=== PATIENT | male | born 1965 | race Caucasian/White ===

== ENCOUNTER → 2021-04-23 10:46 | Outpatient (CLI) | payer OTHER, SELFPAY ==
[2021-04-23 11:42] LABS: Hematocrit 43.5 % (41-53); Mean Corpuscular HGB Conc 34.5 % (30-36); Mean Corpuscular Hemoglobin 34.2 PG (26-34); Mean Corpuscular Volume 99.1 fL (80-100); Platelet Count 158 X10^3/uL (150-400); Red Blood Cell Count 4.39 X10^6/uL (4.5-5.9); Red Cell Distribution Width 11.8 % (11.6-14.8); White Blood Cell Count 5.2 X10^3/uL (4.5-11.0)
[2021-04-23 11:48] LABS: HEMOLYSIS < 15 (0-50); Iron 164 ug/dL (49-181)
[2021-04-23 11:51] LABS: Cholesterol 218 mg/dL (140-199); HDL Cholesterol 78 mg/dL (40-60); LDL Cholesterol Calculated 121 mg/dL (<100); Triglycerides 95 mg/dL (35-150)
[2021-04-23 11:59] LABS: Total Iron Binding Capacity 208 ug/dL (261-462); Transferrin 169 mg/dL (206-381)
[2021-04-23 12:00] LABS: Percent Iron Saturation 79 % (20-50)
[2021-04-23 12:04] LABS: Vitamin D 25 Hydroxy (D3) 40.1 ng/mL (30.0-100.0)
[2021-04-23 12:23] LABS: Prostate Specific Antigen Scrn 0.931 ng/mL (0.1-4.0)
[2021-04-23 12:27] LABS: Ferritin 57 ng/mL (18-464)
== END ==
PROVIDERS: PCP Student in an Organized Health Care Education/Training Program; Referring Provider Student in an Organized Health Care Education/Training Program; Visit Provider Student in an Organized Health Care Education/Training Program
DX: Z12.5 Encounter for screening for malignant neoplasm of prostate (principal); E55.9 Vitamin D deficiency, unspecified; E83.119 Hemochromatosis, unspecified; Z13.220 Encounter for screening for lipoid disorders
CPT/HCPCS: 36415; 80061; 82306; 82728; 83540; 83550; 85027; G0103

== ENCOUNTER 2021-09-11 13:30 | Outpatient (RCR) | payer OTHER, SELFPAY ==
--- NOTE | 2021-09-01 12:34 | ST.IPIE ---
Visit Care Team Role Provider Type Roman Dawson MD Family Provider Physician Primary Care Provider Specialty: Internal Medicine Address: [address] [place] [address], [address], [place], [address] Email: [email or web address] Clara Valencia DO Attending Provider Non-Staff Referring Provider Specialty: Psychiatry Address: [address] [place] [address], [address], [place], [address] Email: Current Diagnoses Other speech disturbances (08/25/21) Past Medical History (Last Updated 04/22/21 @ 20:36 by Purnima Rowley) Atrial fibrillation (Medical ~2013) Hemochromatosis (Medical ~1993) Prostate cancer (Medical) Skin cancer (Medical) Status post ablation of atrial fibrillation (Medical ~2014) ST IP Initial Evaluation Report SCHEDULE PLANNING MANAGER Motor Speech Evaluation Start: 08/25/21 13:53 Freq: Status: Active Protocol: Document 08/25/21 13:58 LNK (Rec: 08/26/21 14:34 LNK [id number]) Motor Speech Evaluation Session Time Visit Start Time 13:30 Visit Stop Time 14:30 Total Visit Minutes 60 Visit Information Visit Number 1 Plan of Care Dates 08/25/21-11/22/21 Setting Setting Outpatient Care Next Note Type Next Note Type Treatment Note Patient History Source: [employer] [facility]). Patient History Pt is a 56 year old male here at the referral of his neurologist Clara Valencia MD. Pt has recently established care with Dr. Alarcon in [place]. Pt reported that approximately 2 months ago, he experienced some difficulty speaking with slurring, a fat tongue, stumbling over words and emotional lability. Two co -workers and pt's have noted a change, He's different. He described 2 instances where he was talking with his and said words that did not make sense at the time. Pt reported that over the last 7 months he and his have experienced a lot of stress (buying new business, moving to a new town , etc.). Pt had a MRI , which he reported was normal. He also had a MBSS which he also reported to be normal. He is scheduled for an EMG in October. He is taking escitolapram ( Lexipro) for anxiety. Referral Referring Physician Clara Valencia MD Reason for Referral speech assessment Mental Status Mental Status Alert,Responsive Oral Motor Lips Function Mild Impairment Observation at rest Slight droop on right corner of mouth. Pt reports moisture build-up/drool Pucker WNL Retraction WNL Alternating pucker/retraction WNL Involuntary Movement None Tongue Function WNL Observations at rest WNL Protrusion WNL Retraction WNL Lateralization WNL Involuntary Movement No lingual fasciculation observed Jaw Function WNL Observations at rest WNL Opening WNL Closing WNL Lateralization WNL Protrusion WNL Retraction WNL Involuntary movement None Soft Palate Function Mild Impairment Observations at rest right side faucial pillar was observed to be lower than left side. Symmetry asymmetrical Elevation asymmetrical Sustained Elevation asymmetrical Alternating elevation/relaxation asymmetrical Involuntary Movement None Respiration/Phonation Phonation Quality WNL Function WNL Loudness WNL Steadiness WNL Conversation Quality WNL Function WNL Loudness WNL Steadiness WNL Diadochokinetic Rates P^ Quality WNL T^ Quality WNL K^ Quality WNL P^T^K^ Quality WNL Speech Intelligibility Standardized Tests Assessment Name(s) Pt reports very close monitoring of speech clarity Phoneme Severity WFL Comments mild slushy /s/ Word Severity WNL Sentence Severity WNL Conversation Severity WNL Awareness/Strategy Use Description Type of awareness/use Uses consistently Findings Details Motor Speech Function Mild Impairment Assessment Details Assessment Pt presented with speech production WFL. Diadochokinesis was observed to be WNL. Oral motor examination was WNL with the exception of velar asymmetry of right faucial piller and slight facial droop on the right side. No lingual fasciculation observed. Neither velar or facial asymetric affected pt's speech intelligibility or vocal quality. Pt's described the pt's speech and as having decreased crispness of /s/. She described /s/ as being slushy. This SCHEDULE PLANNING MANAGER observed a slight /sh/ for /s/; however it did not impact intelligibility. The pt described he is carefully and continuously monitoring his speech production. He stated if he is not attending to his speech he sounds like [he' s] drunk. The observations described above and the pt's report of his symptoms at that time appear to indicate a TIA . Speech therapy is not indicated at this time. Recommendations Treatment Recommended No Referrals Suggested Neurology Patient/Family Education Education Described results of evaluation,Patient Understanding
--- NOTE | 2021-09-11 14:18 | ST.OPTN ---
Visit Care Team Role Provider Type Roman Dawson MD Family Provider Physician Primary Care Provider Address: [address] [place] [address], [address], [place], [address] Clara Valencia DO Attending Provider Non-Staff Referring Provider Address: [facility] [address] [place], [address], [place], [address] CARBURIZING FURNACE OPERATOR Treatment Note CARBURIZING FURNACE OPERATOR Treatment Note Start: 08/26/21 13:58 Freq: Status: Active Protocol: Document 09/11/21 14:02 LNK (Rec: 09/11/21 14:18 LNK [id number]) Speech Pathology Treatment Note Session Time Visit Start Time 13:30 Visit Stop Time 14:00 Total Visit Minutes 30 Visit Type Note Type Initial Evaluation Next Note Type Next Note Type Discharge Summary General Information General Information Pt is a 56 year old male here at the referral of his neurologist Clara Valencia MD. Pt has recently established care with Dr. Alarcon in [place]. Pt reported that approximately 2 months ago, he experienced some difficulty speaking with slurring, a fat tongue, stumbling over words and emotional lability. Two co -workers and pt's have noted a change, He's different. Subjective Identification Type Name,Date of Others Present Family Chief Complaint(s) Speech Patient Knowledge/Awareness of CARBURIZING FURNACE OPERATOR Role Excellent in Treatment Objective Treatment Activities Pt requested follow up appointment to review and discuss the initial evaluation results. reviewed report with pt and answered all questions satisfactorily. Also reassured pt that the slight observations of oral and velar asymmetry could be within the realm of normal facial asymmetry. Pt inquired about any exercises that would help with /s/ production Recommended tongue twisters targeting /s/. Continued ST is not recommended at this time. Encourages pt and his to notify physician immediately if they notice any stroke-like s/sx. Assessment Assessment of Improvement Pt and inquired about the relationship between stress ad this type of event. This CARBURIZING FURNACE OPERATOR noted that stress may have effects on many different body systems. They were encouraged to contact Dr. Alarcon with any questions. Plan Provided Patient/Caregiver Instruction Home Exercise Program, Questions/Concerns Therapy Recommendations Discharge from Speech Therapy
== END 2021-09-15 10:42 ==
LOC: SP 13:30
PROVIDERS: Family Provider Student in an Organized Health Care Education/Training Program; PCP Student in an Organized Health Care Education/Training Program; Referring Provider Psychiatry & Neurology Neurology; Visit Provider Psychiatry & Neurology Neurology
DX: R47.89 Other speech disturbances (principal)
CPT/HCPCS: 92507; 92522

== ENCOUNTER → 2021-11-19 10:51 | Outpatient (CLI) | payer OTHER, SELFPAY ==
[2021-11-19 11:41] LABS: Erythrocyte Sedimentation Rate 4 MM/HR (0-15)
[2021-11-19 11:42] LABS: C-Reactive Protein Quant < 0.5 mg/dL (<1.0)
[2021-11-20 17:42] LABS: Lead, Blood 1 ug/dL (0-4)
== END ==
PROVIDERS: Family Provider Student in an Organized Health Care Education/Training Program; PCP Student in an Organized Health Care Education/Training Program; Referring Provider Student in an Organized Health Care Education/Training Program; Visit Provider Student in an Organized Health Care Education/Training Program
DX: E83.110 Hereditary hemochromatosis (principal); F68.8 Other specified disorders of adult personality and behavior; R47.1 Dysarthria and anarthria; R45.86 Emotional lability
CPT/HCPCS: 36415; 82175; 83655; 83825; 85651; 86140

== ENCOUNTER 2022-09-28 16:19 | Emergency (ER) | payer OTHER, SELFPAY ==
[2022-09-28] VITALS (7 sets, daily range): BP systolic 166–205; BP diastolic 88–104; PULSE 70–75; RESP 16–22; TEMP 36.2; O2SAT 98–99; BMI 25.0
--- NOTE | 2022-09-28 16:27 | DI.CT.S_ITS ---
PROCEDURE: CT HEAD/BRAIN WO CON INDICATIONS: hit head w/ lac (hit roof of fork lift when it fell over) TECHNIQUE: Noncontrast 4.5 mm thick angled axial sections acquired from the foramen magnum to the vertex, with coronal and sagittal reformats. For radiation dose reduction, the following was used: automated exposure control, adjustment of mA and/or kV according to patient size. COMPARISON: None. FINDINGS: Image quality: Excellent. CSF spaces: Basal cisterns are patent. No extra-axial fluid collections. Ventricles are normal in size and shape. Brain: No midline shift. No intracranial masses or hemorrhage. Elder-white matter interface is normal. Skull and face: Calvarium and visualized facial bones are intact, without suspicious lesions. Sinuses: Visualized sinuses and mastoids are clear. IMPRESSION: No acute intracranial pathology. Dictated by: Dixon Bartholomew M.D. on 09/28/2022 at 16:56 Approved by: Dixon Bartholomew M.D. on 09/28/2022 at 16:57
--- NOTE | 2022-09-28 16:27 | DI.CT.S_ITS ---
PROCEDURE: CT CERVICAL SPINE WO CON INDICATIONS: hit head w/ lac (hit roof of fork lift when it fell over) TECHNIQUE: Noncontrast 3 mm thick sections acquired from the skull base to the T4 level. Sagittal and coronal reformats were then constructed. For radiation dose reduction, the following was used: automated exposure control, adjustment of mA and/or kV according to patient size. COMPARISON: None. FINDINGS: Image quality: Excellent. Bones: No fractures or dislocations. Visualized superior ribs are intact. 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 Mild disc height loss at C5-6, C6-7. Soft tissues: Prevertebral soft tissues are normal in thickness. No paravertebral hematomas. No apical pneumothoraces. IMPRESSION: No acute, displaced fracture or traumatic subluxation. Dictated by: Dixon Bartholomew M.D. on 09/28/2022 at 16:57 Approved by: Dixon Bartholomew M.D. on 09/28/2022 at 17:00
--- NOTE | 2022-09-28 17:31 | ED.GENADULT ---
HPI - General Adult General Chief complaint: Trauma Stated complaint: Forklift tipped, hit head, lac, bleeding Time Seen by Provider: 09/28/22 16:23 Source: patient and family Mode of arrival: Ambulatory History of Present Illness HPI narrative: 57-year-old male who arrived by private vehicle for injuries he sustained when he was using a forklift. He states that the back wheels of the forklift started a come off the ground rather quickly. It caused him to hit his head on the ceiling/roof of the forklift. There was no loss of consciousness. He did sustain a cut to his head. He did have neck pain. Was evaluated by EMS but arrived by private vehicle. Reports no other injuries from the event. The laceration was covered with a bandage. Related Data Previous Rx's Medication Instructions Recorded alprazolam 1 mg tablet 1 mg PO BEDTIME PRN anxiety #1 tab 09/11/21 escitalopram oxalate 5 mg tablet 10 mg PO DAILY #30 tabs 09/11/21 (Lexapro) Allergies Allergy/AdvReac Type Severity Reaction Status Date / Time No Known Drug Allergies Allergy Unverified 09/11/21 09:30 Review of Systems Constitutional Constitutional: Reports system reviewed and no additional complaints, except as documented Eyes Eyes: Reports system reviewed and no additional complaints, except as documented ENT Ears, Nose, Mouth, and Throat: Reports system reviewed and no additional complaints, except as documented Integumentary/Breasts Skin/Breast: Reports system reviewed and no additional complaints, except as documented Neurologic Neurologic: Reports system reviewed and no additional complaints, except as documented Hematologic/Lymphatic On Anticoagulants: No Patient History Medical History Atrial fibrillation (~2013) Hemochromatosis (~1993) Prostate cancer Skin cancer Surgical History (Updated 04/22/21 @ 20:36 by Purnima Rowley) Anesthesia Status post ablation of atrial fibrillation (~2014) Family History (Updated 04/22/21 @ 20:37 by Purnima Rowley) Father Prostate cancer Atrial fibrillation Hypertension Mother Cancer Social History Smoking Status: Never smoker Smoking Status: Never smoker Substance Use Type: does not use Exam Initial Vital Signs Initial Vital Signs: Vital Signs Temperature 97.1 F L 09/28/22 16:24 Pulse Rate 73 09/28/22 16:24 Respiratory Rate 22 09/28/22 16:24 Blood Pressure 205/101 H 09/28/22 16:24 Pulse Oximetry 99 09/28/22 16:24 Oxygen Delivery Method Room Air 09/28/22 16:24 Const General: cooperative, comfortable and No ill appearing HENMT Head: laceration Back/Spine/Pelvis Cervical Spine: collar present Skin Other: 10 cm laceration to the forehead. No active bleeding. Neuro General: patient alert, patient awake, patient oriented x3 and moves all extremities Extrem General: normal to inspection and capillary refill normal Procedures Laceration Repair Laceration 1: Site: scalp Side (If applicable): left Size (cm): 10 Description: linear Depth: simple, single layer Local Anesthetic: lidocaine 1% and with epi Amount of anesthesia used (mL): 8 Pre-repair: wound explored, irrigated extensively and deep structures intact Skin layer closed with: nylon Skin layer suture size: 4-0 Number of sutures: 13 Technique: simple, interrupted Scores GCS Kym coma scale eye opening: Spontaneous Kym coma scale verbal response: Orientated Kym coma scale motor response: Obey commands Kym coma scale total score: 15 Course Orders Ordered: ED Orders 09/28/22 16:27 CT cervical spine wo con Stat CT head/brain wo con Stat Discontinued Medications Diphtheria/Tetanus/Acell Pertussis (Tet,Diph,Pertuss(Acell),Vac/Pf 0.5 Ml Syringe) 0.5 ml IM .ONCE ONE Stop: 09/28/22 17:42 Last Admin: 09/28/22 17:51 Dose: 0.5 ml Vital Signs Vital signs: Vital Signs - 8 hr 09/28/22 16:24 09/28/22 16:25 09/28/22 16:30 Temperature 97.1 F L Pulse Rate 73 71 Respiratory Rate 22 Blood Pressure 205/101 H 205/101 H Pulse Oximetry 99 98 Oxygen Delivery Method Room Air 09/28/22 16:30 09/28/22 16:51 09/28/22 16:51 Temperature Pulse Rate 73 70 Respiratory Rate Blood Pressure 166/91 H Pulse Oximetry 99 98 Oxygen Delivery Method 09/28/22 17:00 09/28/22 17:00 Temperature Pulse Rate 70 Respiratory Rate 16 Blood Pressure 169/95 H Pulse Oximetry 98 Oxygen Delivery Method Room Air Medical Decision Making Imaging Data CT scan - head: Radiologist's Impression: PROCEDURE:? CT HEAD/BRAIN WO CON ? INDICATIONS:? hit head w/ lac (hit roof of fork lift when it fell over) ? TECHNIQUE:? Noncontrast 4.5 mm thick angled axial sections acquired from the foramen magnum to the vertex, with coronal and sagittal reformats.? For radiation dose reduction, the following was used:? automated exposure control, adjustment of mA and/or kV according to patient size.? ? COMPARISON:? None. ? FINDINGS:? Image quality:? Excellent.? ? CSF spaces:? Basal cisterns are patent.? No extra-axial fluid collections.? Ventricles are normal in size and shape.? ? Brain:? No midline shift.? No intracranial masses or hemorrhage.? Elder-white matter interface is normal.? ? Skull and face:? Calvarium and visualized facial bones are intact, without suspicious lesions.? ? Sinuses:? Visualized sinuses and mastoids are clear.? ? IMPRESSION:? No acute intracranial pathology. CT - cervical spine: Radiologist's Impression: PROCEDURE:? CT CERVICAL SPINE WO CON ? INDICATIONS:? hit head w/ lac (hit roof of fork lift when it fell over) ? TECHNIQUE:? Noncontrast 3 mm thick sections acquired from the skull base to the T4 level.? Sagittal and coronal reformats were then constructed.? For radiation dose reduction, the following was used:? automated exposure control, adjustment of mA and/or kV according to patient size.? ? COMPARISON:? None. ? FINDINGS:? Image quality:? Excellent.? ? Bones:? No fractures or dislocations.? Visualized superior ribs are intact.? 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 Mild disc height loss at C5-6, C6-7. ? Soft tissues:? Prevertebral soft tissues are normal in thickness.? No paravertebral hematomas.? No apical pneumothoraces.? ? ? IMPRESSION:? No acute, displaced fracture or traumatic subluxation. MDM Narrative Medical decision making narrative: Alert oriented x3. Cervical collar was placed by nursing in triage. Cervical spine and head CT are unremarkable. Laceration was closed as described above. Reports no other injuries from the event. Will discharge patient home with care instructions from the laceration. He was given return precautions. He expressed understanding and agreement. Discharge Plan Departure Patient Disposition: Home Clinical Impression: Laceration of scalp Instructions: DI for Laceration Repair -- Simple Activity Restrictions/Additional Instructions: The stitches do need to be removed in 7-10 days. You can either go to your primary doctor or the walk-in clinic for this. You can keep topical antibiotic ointment over the area. You can shower like normal and use soap and water just be careful with brushing your hair. Return to the emergency department for any new or worsening symptoms. You can take Tylenol for any headaches. Prescriptions: No Action escitalopram oxalate [Lexapro] 5 mg tablet 10 mg PO DAILY Qty: 30 0RF alprazolam 1 mg tablet 1 mg PO BEDTIME PRN (Reason: anxiety) Qty: 1 0RF Stand Alone Forms: Patient Portal/API
--- NOTE | 2022-09-28 17:49 | PC.NURSE ---
irrigated scalp laceration with sterile water 100cc
[2022-09-28] MEDS: TET,DIPH,PERTUSS(ACELL),VAC/PF 0.5 ML SYRINGE IM (17:51)
--- NOTE | 2022-09-28 17:54 | PC.NURSE ---
Noted standing in doorway of room 1 as doc to doc report occurring. Asked if I could help her, she states just listening. I asked her not to listen citing privacy and she shut the door.
--- NOTE | 2022-09-28 17:56 | PC.NURSE ---
entered room to give pt tetanus shot and was angry, raised voice, yelling at this rn. that nurse just yelled at me 2x, i wasnt even listening i was just standing there zoning out really so i wasnt listening to them. the first time she yelled was when the door open and i came in and she said not to just enter until given the ok. explained if she would like to speak with my manager protein i could provide that contact information and that visitors cannot be standing outside of the door at the door because it is potential for a hipaa violation due to the care area. remains angry and irritable speaking with a raised tone that you all should just have some compassion for me
[2022-09-28] MEDS: BACITRACIN OINT 0.9 GM PCKT 1 APPLIC TOP (18:27)
== END 2022-09-28 16:30 | disposition home or self-care (01) ==
PROVIDERS: Emergency Provider Emergency Medicine; Family Provider Student in an Organized Health Care Education/Training Program
DX: S01.01XA Laceration without foreign body of scalp, initial encounter (principal); S09.90XA Unspecified injury of head, initial encounter; W18.09XA Striking against other object with subsequent fall, initial encounter; Z23 Encounter for immunization
CPT/HCPCS: 12004; 70450; 72125; 90471; 99284; 90715

== ENCOUNTER 2023-12-24 11:28 | Emergency (ER) | payer OTHER, SELFPAY ==
[2023-12-24] VITALS (25 sets, daily range): BP systolic 105–155; BP diastolic 61–108; PULSE 79–149; RESP 16–30; TEMP 36.6; O2SAT 95–99; BMI 24.6
--- NOTE | 2023-12-24 11:48 | DI.RAD.S_ITS ---
PROCEDURE: XR CHEST 1V INDICATIONS: chest pain TECHNIQUE: One view of the chest was acquired. COMPARISON: None. FINDINGS: Surgical changes and devices: None. Lungs and pleura: Lungs are clear. No pleural effusions or pneumothorax. Mediastinum: Mediastinal contours appear normal. Heart size is normal. Bones and chest wall: No suspicious bony lesions. Overlying soft tissues appear unremarkable. IMPRESSION: No acute cardiopulmonary pathology. Dictated by: Sidney Perdue M.D. on 12/24/2023 at 12:38 Approved by: Sidney Perdue M.D. on 12/24/2023 at 12:40
--- NOTE | 2023-12-24 11:48 | EKG_ITS ---
[address] [address] Test Date: 2023-12-24 Pat Name: Shukri Orta Department: Room: Gender: Male Pop Singer: JANEEN : 1965 Requested By: Order Number: [id number] Reading MD: Deon Swan MD Measurements Intervals [place] Rate: 136 P: IN: QRS: 42 QRSD: 88 T: 41 QT: 316 QTc: 475 Interpretive Statements Atrial fibrillation with rapid ventricular response Septal infarct , age undetermined NO PRIOR TRACING Electronically Signed On 12-24-2023 12:04:53 PDT by Deon Swan MD
--- NOTE | 2023-12-24 11:52 | ED_ITS ---
HPI - SOB/Dyspnea General Chief Complaint: Shortness of Breath/Dyspnea Stated Complaint: believes he is in AFIB hx of it Time Seen by Provider: 12/24/23 11:34 Source: patient Mode of arrival: Ambulatory Limitations: no limitations History of Present Illness HPI Narrative: 58M nonsmoker with history of ALS, atrial fibrillation with ablation in 2014 presents with a chief complaint of a sudden onset rapid heart rate shortness of breath and lightheadedness at 1:00 p.m. yesterday. He states that historically he is quite sensitive to atrial fibrillation and is certain that he has only been in it for 23 hours or less. 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 He denies nausea vomiting, fever or chills. He states that he has on no new medications but has been experimenting with fasting at home and had gone over 18 hours without eating when he exerted himself just prior to symptoms starting. He is otherwise well and free of complaint Related Data Previous Rx's Medication Instructions Recorded alprazolam 1 mg tablet 1 mg PO BEDTIME PRN anxiety #1 tab 09/11/21 escitalopram oxalate 5 mg tablet 10 mg (2 x 5 mg) PO DAILY #30 tabs 09/11/21 (Lexapro) apixaban 5 mg tablet (Eliquis) 5 mg PO BID #60 tabs 12/24/23 Allergies Allergy/AdvReac Type Severity Reaction Status Date / Time No Known Drug Allergies Allergy Verified 12/24/23 11:50 Review of Systems Review of Systems Narrative: GENERAL: Denies chills, fatigue, malaise, fever, sweats. HEENT: Denies sinus pain, ear pain, sore throat, difficulty swallowing, dizziness. RESPIRATORY: See HPI CARDIOVASCULAR: See HPI GASTROINTESTINAL: Denies nausea, vomiting, abdominal pain, diarrhea, constipation, melena. : Denies dysuria, frequency, incontinence, hematuria, urinary retention. MUSCULOSKELETAL: denies weakness, joint pain, or bony pain SKIN: Denies rash, skin lesions, or other NEUROLOGIC: Denies weakness, headache, numbness, change in speech, confusion, seizures, incoordination. PSYCHIATRIC: No concerning psychosocial issues. 12 point review of systems is negative except for those stated above Patient History Medical History ALS (amyotrophic lateral sclerosis) Hemochromatosis (~1993) Atrial fibrillation (~2013) Skin cancer Prostate cancer Surgical History Anesthesia Status post ablation of atrial fibrillation (~2014) Family History Father Prostate cancer Atrial fibrillation Hypertension Mother Cancer Social History Smoking Status: Never smoker Smoking Status: Never smoker Substance Use Type: does not use Exam Narrative Exam Narrative: GENERAL: [58] year old patient appears stated age. Well-developed patient, in mild distress. HEAD: Atraumatic. Normocephalic. EYES: Pupils equal round and reactive. Extraocular motions intact. No scleral icterus. No injection or drainage. ENT: Nose without bleeding, purulent drainage. Throat without erythema, tonsillar hypertrophy or exudate. Airway patent. NECK: Trachea midline. Non tender CARDIOVASCULAR: tachycardic and irregular without murmurs, gallops, or rubs. RESPIRATORY: Clear to auscultation. Breath sounds equal bilaterally. No wheezes, rales, or rhonchi. GASTROINTESTINAL: Abdomen soft, non-tender, nondistended. EXTREMITIES: No edema or joint tenderness. BACK: Nontender without deformity or crepitance. No flank tenderness. NEURO: AOx3. SKIN: No rash or erythema of visible areas Initial Vital Signs Initial Vital Signs: Vital Signs Pulse Oximetry 98 12/24/23 11:40 Procedures Procedural Sedation Consent signed: Yes Time out performed: Yes Indication: cardioversion Presedation Evaluation: Tachycardic and irregular ASA Class: II Mallampati Airway Classification: Class II Preparation: night monitor applied, pulse oximeter, capnometry used, supplemental O2 applied, suction/airway equipment at bedside and IV secured IV Propofol dose (mg): 90 Intraservice time/total sedation time (min): 12 ED Sedation Level: Moderate (Concious) Patient Tolerated Procedure: Well Complications: hypoxia Interventions: Airway repositioned Course Orders Ordered: ED Orders 12/24/23 11:45 Comprehensive Metabolic Panel Stat Lipase Stat Magnesium Stat Troponin & CK Cardiac Panel Stat 12/24/23 11:48 XR chest 1V Stat Complete Blood Count AUTO DIFF Stat PTT Partial Thromboplastin Aamir Stat Prothrombin Time INR Stat EKG-12 Lead Stat Discontinued Medications Aspirin (Aspirin 81 Mg Chew Tab) 324 mg PO NOW ONE Stop: 12/24/23 11:49 Last Admin: 12/24/23 12:45 Dose: Not Given Propofol (Propofol 200 Mg/20 Ml Vial) 80 mg 1 mg/kg (80 mg) IV NOW ONE Stop: 12/24/23 12:14 Last Admin: 12/24/23 13:10 Dose: 80 mg Vital Signs Vital signs: Vital Signs - 8 hr 12/24/23 11:40 12/24/23 11:42 12/24/23 11:42 Temperature Pulse Rate 143 H Respiratory Rate 25 H Blood Pressure 143/67 H Pulse Oximetry 98 99 Oxygen Delivery Method Room Air Oxygen Flow Rate 12/24/23 11:45 12/24/23 11:47 12/24/23 11:50 Temperature 97.9 F Pulse Rate 144 H 149 H 134 H Respiratory Rate 20 20 21 Blood Pressure 143/67 H Pulse Oximetry 99 99 98 Oxygen Delivery Method Room Air Oxygen Flow Rate 12/24/23 11:55 12/24/23 12:00 12/24/23 12:00 Temperature Pulse Rate 132 H 140 H Respiratory Rate 23 25 H Blood Pressure 155/79 H Pulse Oximetry 98 97 Oxygen Delivery Method Oxygen Flow Rate 12/24/23 12:05 12/24/23 12:10 12/24/23 12:15 Temperature Pulse Rate 135 H 141 H 129 H Respiratory Rate 19 20 18 Blood Pressure Pulse Oximetry 97 97 97 Oxygen Delivery Method Oxygen Flow Rate 12/24/23 12:20 12/24/23 12:25 12/24/23 12:30 Temperature Pulse Rate 130 H 137 H 129 H Respiratory Rate 20 25 H 26 H Blood Pressure Pulse Oximetry 97 97 Oxygen Delivery Method Oxygen Flow Rate 12/24/23 12:30 12/24/23 12:30 12/24/23 12:35 Temperature Pulse Rate 80 135 H Respiratory Rate 16 24 Blood Pressure 148/108 H Pulse Oximetry 97 Oxygen Delivery Method Oxygen Flow Rate 12/24/23 12:35 12/24/23 12:40 12/24/23 12:40 Temperature Pulse Rate 125 H Respiratory Rate 29 H Blood Pressure 143/74 H 139/63 Pulse Oximetry 97 Oxygen Delivery Method Oxygen Flow Rate 12/24/23 12:45 12/24/23 12:45 12/24/23 12:50 Temperature Pulse Rate 124 H Respiratory Rate 18 Blood Pressure 123/65 106/61 Pulse Oximetry 95 Oxygen Delivery Method Oxygen Flow Rate 12/24/23 12:50 12/24/23 12:55 12/24/23 12:55 Temperature Pulse Rate 127 H 83 Respiratory Rate 17 23 Blood Pressure 105/63 Pulse Oximetry 98 98 Oxygen Delivery Method Nasal Cannula Oxygen Flow Rate 2 12/24/23 13:00 12/24/23 13:00 12/24/23 13:05 Temperature Pulse Rate 83 Respiratory Rate 30 H Blood Pressure 111/62 106/62 Pulse Oximetry 97 Oxygen Delivery Method Oxygen Flow Rate 12/24/23 13:05 Temperature Pulse Rate 80 Respiratory Rate 20 Blood Pressure Pulse Oximetry 97 Oxygen Delivery Method Oxygen Flow Rate MDM - SOB/Dyspnea Lab Data 12/24/23 11:45 12/24/23 11:45 Labs: Lab Results 12/24/23 Range/Units 11:45 WBC 7.5 (4.5-11.0) X10^3/uL RBC 4.56 (4.5-5.9) X10^6/uL Hgb 15.9 (13.5-17.5) g/dL Hct 45.1 (41-53) % MCV 99.0 (80-100) fL MCH 34.9 H (26-34) PG MCHC 35.3 (30-36) % RDW 12.3 (11.6-14.8) % Plt Count 179 (150-400) X10^3/uL Neut % (Auto) 62.0 (50-75) % Lymph % (Auto) 25.7 (25-40) % Loving % (Auto) 9.9 (3-14) % Eos % (Auto) 1.9 L (2-4) % Baso % (Auto) 0.5 (0-2) % Neut # (Auto) 4700 (9790-6485) /uL Lymph # (Auto) 1900 (8685-4891) /uL Loving # (Auto) 700 (0-900) /uL Eos # (Auto) 100 (0-450) /uL Baso # (Auto) 0 (0-100) /uL PT 11.6 (9.4-12.5) SECONDS INR 1.0 (0.9-1.3) APTT 32 (25.1-36.5) SECONDS Sodium 136 L (137-145) mmol/L Potassium 4.3 (3.4-5.1) mmol/L Chloride 107 (98-107) mmol/L Carbon Dioxide 23 (22-32) mmol/L BUN 20 (9-20) mg/dL Creatinine 1.07 (0.66-1.25) mg/dL Estimated GFR > 60 (>60) mL/min BUN/Creatinine Ratio 18.7 (6-22) Glucose 129 H (70-100) mg/dL Calcium 9.1 (8.4-10.2) mg/dL Magnesium 2.0 (1.6-2.3) mg/dL Total Bilirubin 1.1 (0.2-1.3) mg/dL AST 39 (17-59) IU/L ALT 46 (<50) IU/L Alkaline Phosphatase 61 (38-126) U/L Total Creatine Kinase 210 H (55-170) U/L Troponin I 0.042 H (0.01-0.034) ng/mL Total Protein 7.0 (6.3-8.2) g/dL Albumin 4.6 (3.5-5.0) g/dL Globulin 2.4 (1.7-4.1) g/dL Albumin/Globulin Ratio 1.9 (1.0-2.8) Lipase 95 (23-300) U/L ECG Data Interpretation: 1200] EKG is rapid atrial fib rate [140s ] and free of any signs of ischemia or ectopy. No ST segmental elevation or depression. No T wave inversions MDM Narrative Medical decision making narrative: CC: 58M with racing heart x23 hours Complicating co-morbidities: ALS, history of Afib, prior ablation Data collected from: Patient Medical records reviewed: Prior notes reviewed in our EMR Differential considered, but not limited to: Rapid atrial fibrillation vs. other tachyarrhythmia Exam documented above, pertinent findings include: Tachycardic and irregular, no increased work of breathing, lung sounds clear. Abdomen soft and nontender Lab Test results independently reviewed as above. Pertinent findings: No leukocytosis or left shift, no signs of anemia. Slight elevation in troponin at 0.042 thought to be most likely rate dependent. Patient has had no exertional symptoms or exercise intolerance, no ischemic changes on EKG. Patient completely asymptomatic after cardioversion. Independently reviewed EKG as above Imaging studies independently reviewed: No acute process on chest x-ray Scores Used: CHADSVASC 0 MIPS Elements: N/A Consultations: N/A Treatments: procedural sedation and electrocardioversion Re-evaluations: Patient asymptomatic and at baseline after procedural sedation and cardioversion Discussion: Patient with history of AFib reports symptoms started abruptly at 1:00 p.m. yesterday (23 hours ago. He states that he has had no episodes of AFib since he had been ablated many years ago. He states that historically he is quite aware of the symptoms and is sure he has not had any occurrences. After discussion risks and benefits became clear the patient is appropriate for cardioversion. HE is asymptomatic and returns to baseline after procedure. 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 Given followup information for local cardiology. Disposition: see below, along with detailed discharge instructions that have been reviewed with patient as well as indications for ED re-evaluation and additional outpatient follow up Discharge Plan Departure Patient Disposition: Home Clinical Impression: Atrial fibrillation Instructions: Atrial Fibrillation Activity Restrictions/Additional Instructions: *You have been diagnosed with [rapid atrial fibrillation] *What to do: *Please continue to take your regular medications as directed. [x ] New medication prescriptions sent to your pharmacy: [ [facility]] [ ] New medication written as a paper prescription [ ] No new medications given *Please follow up with your primary care provider in 2-3 days, call for an appointment. Let them know you were seen in the Emergency Department and that we ask that you be seen in follow up. We will electronically transmit a record of today's note if your PCP is in our system *If you do not have a primary care provider please contact the [facility] Resource line at [phone]. They will ask some questions about your medical history and help get you set up with a doctor in the community. *Return to Emergency Department if you should have any new, worsening or concerning symptoms, such as [fever greater than 101 F, shaking chills, worsening pain, persistent vomiting or other bothersome symptoms] Prescriptions: New Eliquis 5 mg tablet 5 mg PO BID Qty: 60 0RF No Action escitalopram oxalate [Lexapro] 5 mg tablet 10 mg PO DAILY Qty: 30 0RF alprazolam 1 mg tablet 1 mg PO BEDTIME PRN (Reason: anxiety) Qty: 1 0RF Referrals: Gregorio Velasquez MD [Physician] - Stand Alone Forms: Patient Portal/API
[2023-12-24 11:54] LABS: Add Manual Diff / Slide Review NO; Basophils Absolute Auto 0 /uL (0-100); Basophils Percent Auto 0.5 % (0-2); Eosinophils Absolute Auto 100 /uL (0-450); Eosinophils Percent Auto 1.9 % (2-4); Hematocrit 45.1 % (41-53); Hemoglobin 15.9 g/dL (13.5-17.5); Lymphocytes Absolute Auto 1900 /uL (1100-4500); Lymphocytes Percent Auto 25.7 % (25-40); Mean Corpuscular HGB Conc 35.3 % (30-36); Mean Corpuscular Hemoglobin 34.9 PG (26-34); Monocytes Absolute Auto 700 /uL (0-900); Monocytes Percent Auto 9.9 % (3-14); Neutrophils Absolute Auto 4700 /uL (1500-7000); Platelet Count 179 X10^3/uL (150-400); Red Blood Cell Count 4.56 X10^6/uL (4.5-5.9); Red Cell Distribution Width 12.3 % (11.6-14.8); White Blood Cell Count 7.5 X10^3/uL (4.5-11.0)
[2023-12-24 12:05] LABS: Prothrombin Time 11.6 SECONDS (9.4-12.5)
[2023-12-24 12:07] LABS: PTT Partial Thromboplastin Tim 32 SECONDS (25.1-36.5)
[2023-12-24 12:09] LABS: Alanine Aminotransferase 46 IU/L (<50); Albumin 4.6 g/dL (3.5-5.0); Albumin Globulin Ratio 1.9 (1.0-2.8); Alkaline Phosphatase 61 U/L (38-126); Aspartate Aminotransferase 39 IU/L (17-59); BUN Creatinine Ratio 18.7 (6-22); Bilirubin Total 1.1 mg/dL (0.2-1.3); Blood Urea Nitrogen 20 mg/dL (9-20); Calcium 9.1 mg/dL (8.4-10.2); Carbon Dioxide 23 mmol/L (22-32); Chloride 107 mmol/L (98-107); Creatine Kinase 210 U/L (55-170); Estimated Glomerular Filt Rate > 60 mL/min (>60); Globulin 2.4 g/dL (1.7-4.1); Glucose 129 mg/dL (70-100); HEMOLYSIS 17 (0-50); Lipase 95 U/L (23-300); Potassium 4.3 mmol/L (3.4-5.1); Sodium 136 mmol/L (137-145)
[2023-12-24 12:21] LABS: Troponin I 0.042 ng/mL (0.01-0.034)
[2023-12-24] MEDS: propofoL 200 MG/20 ML VIAL 80 MG IV (13:10)
== END 2023-12-24 13:58 | disposition home or self-care (01) ==
PROVIDERS: Emergency Provider Emergency Medicine; Family Provider Student in an Organized Health Care Education/Training Program
DX: I48.91 Unspecified atrial fibrillation (principal); R06.02 Shortness of breath; Z79.01 Long term (current) use of anticoagulants
CPT/HCPCS: 36415; 71045; 80053; 82550; 83690; 83735; 84484; 85025; 85610; 85730; 92960; 93005; 93010; 99152; 99285; J2704

== ENCOUNTER 2024-02-29 08:13 | Day surgery (SDC) | payer OTHER, SELFPAY ==
[2024-02-29] MEDS: LACTATED RINGERS 1,000 ML 42 ML IV (08:26)
[2024-02-29 08:28] VITALS: BP 154/75; PULSE 72; RESP 17; TEMP 36.6; O2SAT 98
--- NOTE | 2024-02-29 08:37 | P.HP_ITS ---
History of Present Illness History of Present Illness Date Patient Seen: 02/29/24 Time Patient Seen: 08:37 Chief complaint: Screening Colonoscopy Narrative: 58-year-old man personal history of colonic polyps here for screening colonoscopy. Last colonoscopy 2017. No abdominal concerns today. No family history of colon cancer. [facility] Medical History ALS (amyotrophic lateral sclerosis) Hemochromatosis (~1993) Atrial fibrillation (~2013) Skin cancer Prostate cancer Surgical History Anesthesia Status post ablation of atrial fibrillation (~2014) Family History Father Prostate cancer Atrial fibrillation Hypertension Mother Cancer Social History Smoking Status: Never smoker Meds Home Medications and Allergies Home Medications Medication Instructions Recorded Confirmed Type alprazolam 1 mg tablet 1 mg PO BEDTIME PRN anxiety #1 tab 09/11/21 09/11/21 Rx escitalopram oxalate 5 mg tablet 10 mg (2 x 5 mg) PO DAILY #30 tabs 09/11/21 09/11/21 Rx (Lexapro) apixaban 5 mg tablet (Eliquis) 5 mg PO BID #60 tabs 12/24/23 Rx Allergies Allergy/AdvReac Type Severity Reaction Status Date / Time No Known Drug Allergies Allergy Verified 12/24/23 11:50 Exam Vital Signs (past 8 hours): - 02/29/24 08:28 Temperature 97.9 F Pulse Rate 72 Respiratory Rate 17 Blood Pressure 154/75 H Pulse Oximetry 98 Oxygen Delivery Method Room Air Oxygen Delivery Method Room Air Narrative Exam Narrative: General adult man alert oriented no acute distress Chest nonlabored respiration Extremities warm well perfused Assessment & Plan Assessment & Plan narrative: The patient requires colorectal screening and colonoscopy is recommended. Tech nical details were discussed. Risks, benefits, alternatives explained. Risks including but not limited to myocardial infarction, aspiration, bleeding, pain, missed lesion, incomplete examination, need for further radiographic studies, intestinal injury, and need for major abdominal surgery were discussed. All questions were answered to their satisfaction, and they are in agreement with this plan. Time-Based Coding :: [TOTAL MINUTES] spent with patient and on the chart (including review of chart, obtaining history, exam, reviewing outside data, placing orders, documenting exam and treatment plan, and counseling patient) on [DATE].
[2024-02-29 09:29] VITALS: BP 120/80; PULSE 72; RESP 16; TEMP 36.2; O2SAT 96
--- NOTE | 2024-02-29 09:32 | P.OP.COLON_ITS ---
Operative Date/Time/Diagnoses Date of procedure: 02/29/24 Time of procedure: 09:32 Pre-op diagnosis: Personal history of colonic polyps Procedure & Clinicians Study performed: Screening colonoscopy Same procedure as scheduled: Yes Indications: Colorectal screening Surgeon: Alonzo Krishna Procedure Notes Procedure in detail: The history and physical was performed/updated and the patient is ASA class is 2. The procedure was discussed in detail with the patient. Potential risks complications including infection, bleeding, missed diagnosis, perforation, need for surgery, and were explained. Their questions were answered and informed consent was obtained. Patient was brought to the procedure room and placed standard monitoring equipment. The patient's vital signs were monitored continuously throughout the entire procedure. Prior to starting time-out was performed. The patient was placed in the left lateral recumbent position. Procedural sedation was administered by anesthesia. Examination began with a thorough inspection of the perianal area there was no evidence of fissures, fistulae, external hemorrhoids or cutaneous malignancy. The colonoscopy scope was then placed into the anal canal and was advanced to the cecum, which was identified by the ileocecal valve, the appendiceal orifice and the confluence of the taenia. The scope was then slowly withdrawn examining colon thoroughly in all directions, irrigating it of any residual stool. The scope was retroflexed within the rectum The patient tolerated the procedure well. They will be discharged once criteria are met. The prep was of good/excellent quality. The withdrawl time was 6 minutes. FINDINGS * No mass or polyps * Diverticulosis of descending colon * Internal hemorrhoids Specimen(s): none sent Impression: Diverticulosis Post-procedure Recommendations: Colonoscopy in 10 years and High fiber diet Disposition: same day surgery
[2024-02-29 09:34] VITALS: BP 121/78; PULSE 70; RESP 15; O2SAT 97
[2024-02-29 09:39] VITALS: BP 130/63; PULSE 67; RESP 12; TEMP 36.3; O2SAT 97
[2024-02-29 09:45] VITALS: BP 132/81; PULSE 66; RESP 16; O2SAT 97
== END 2024-02-29 09:58 | disposition home or self-care (01) ==
PROVIDERS: Family Provider Student in an Organized Health Care Education/Training Program; Referring Provider Surgery; Visit Provider Surgery
PROC: 0DJD8ZZ Inspection of Lower Intestinal Tract, Via Natural or Artificial Opening Endoscopic (ICD-10-PCS; CPT 45378; principal; 2024-02-29 09:15)
DX: Z12.11 Encounter for screening for malignant neoplasm of colon (principal); Z86.010 Personal history of colon polyps; K57.30 Diverticulosis of large intestine without perforation or abscess without bleeding; K64.8 Other hemorrhoids
CPT/HCPCS: G0105; J2704